=== PATIENT | male | born 1940 | race Caucasian/White ===

== ENCOUNTER → 2021-09-25 | Day surgery (SDC) | payer MEDICARE, BC ==
[~2021-09-25] MED LIST: Bupivacaine 0.25% 10 ML SDV ONE; Lactated Ringers 0 ML ONE; Lactated Ringers 1,000 ML IV SCH; Lidocaine 1%/Sod Bicarbonate in NS 8.4% 1 ML Syringe IDERM PRN; Morphine 8 MG, EPINEPHrine 0.3 MG, Cefuroxime 750 MG, Ketorolac 30 MG, Sodium Chloride ... PRN; Propofol 200 MG/20 ML SDV ONE; Sodium Chloride 0.9% 10 ML Syringe FLUSH PRN; Sodium Chloride 0.9% 10 ML Syringe FLUSH SCH; Triamcinolone Acetonide 40 MG/ML 1 ML SDV ONE; Vancomycin 1 GM SDV ONE; ceFAZolin 1 GM Vial ONE; fentaNYL 100 MCG/2 ML SDV ONE
== END | disposition home or self-care (01) ==
LOC: JD.SDS 09:33
PROVIDERS: ATTEND Orthopaedic Surgery
DX: M17.11 Unilateral primary osteoarthritis, right knee (principal); I25.10 Atherosclerotic heart disease of native coronary artery without angina pectoris; E78.00 Pure hypercholesterolemia, unspecified; E55.9 Vitamin D deficiency, unspecified; N40.0 Benign prostatic hyperplasia without lower urinary tract symptoms; H54.7 Unspecified visual loss; Z87.891 Personal history of nicotine dependence; Z88.5 Allergy status to narcotic agent; Z79.82 Long term (current) use of aspirin; Z79.899 Other long term (current) drug therapy; Z53.09 Procedure and treatment not carried out because of other contraindication
CPT/HCPCS: 36415; 80048; 87641; J7120; J0690; J2704; J3010; J3301; J3370; J3490

== ENCOUNTER 2021-12-06 09:17 | Day surgery (SDC) | payer MEDICARE, BC ==
[~2021-12-06 09:17] MED LIST changes: -Bupivacaine 0.25% 10 ML SDV ONE; +EPINEPHrine 1 MG/ML SDV ONE; -Lactated Ringers 0 ML ONE; +Ropivacaine 0.5% 5 MG/ML 30 ML SDV ONE; -Triamcinolone Acetonide 40 MG/ML 1 ML SDV ONE; -Vancomycin 1 GM SDV ONE; -ceFAZolin 1 GM Vial ONE; +ceFAZolin 2 GM Vial ONE
[2021-12-06] MEDS ORDERED: Triamcinolone Acetonide 40 MG/ML 1 ML SDV ONE (09:48)
[2021-12-06] MEDS ORDERED: Bupivacaine 0.25% 10 ML SDV ONE (09:49)
[2021-12-06] MEDS ORDERED: Vancomycin 1 GM SDV ONE (09:49)
[2021-12-06] MEDS ORDERED: Midazolam 1 MG/ML 2 ML SDV ONE (10:28)
[2021-12-06] MEDS ORDERED: Lidocaine 1% 4 ML ONE (10:58)
[2021-12-06] MEDS ORDERED: ePHEDrine 50 MG/ML SDV ONE (11:11)
[2021-12-06] MEDS ORDERED: Lactated Ringers 1,000 ML ONE (11:58)
[2021-12-06] MEDS ORDERED: fentaNYL 100 MCG/2 ML SDV IVPUSH PRN (12:38)
[2021-12-06] MEDS ORDERED: Ondansetron 4 MG/2 ML SDV IVPUSH PRN (12:38)
== END 2021-12-06 15:45 | disposition home or self-care (01) ==
LOC: JD.SDS 09:17
PROVIDERS: ATTEND Orthopaedic Surgery
DX: M17.0 Bilateral primary osteoarthritis of knee (principal); E87.1 Hypo-osmolality and hyponatremia; I25.10 Atherosclerotic heart disease of native coronary artery without angina pectoris; E78.00 Pure hypercholesterolemia, unspecified; E55.9 Vitamin D deficiency, unspecified; N40.0 Benign prostatic hyperplasia without lower urinary tract symptoms; Z87.891 Personal history of nicotine dependence; Z88.5 Allergy status to narcotic agent; Z79.899 Other long term (current) drug therapy; Z79.82 Long term (current) use of aspirin
CPT/HCPCS: 0055T; 20610; 27447; 73560; 97110; 97116; 97161; C1713; C1776; J0171; J0690; J0697; J1885; J2250; J2270; J2704; J2795; J3010; J3301; J3370; J3490; J7120; 01402; 64450; 76942; 99100